=== PATIENT | male | born 1970 | race Caucasian/White ===

== ENCOUNTER → 2018-07-07 18:41 | Emergency (ER) | payer SELFPAY ==
--- NOTE | 2018-07-07 20:02 | ED ---
Abdominal Pain/Male - HPI Summary HPI Summary: A 48 y/o male presents to [facility] with a chief complaint of left sided abdominal pain for four days. He reports that his pain started out as left sided back pain , going to his ribs and now the left side of his abdomen. He describes his pain as a burning pain. At triage he rated his pain as a 7/10 in severity. He claims that this pain has been intermittent. He denies any N/V/D. He claims that ever since he had back surgery he felt constipated. He claims that his last BM was bloody four days ago. He denies any dysuria, hematuria, or pain in his testicles. He claims that he has lost his appetite, not eating yet today. He denies any abdominal SHx and denies any hernias. He reports a Hx of cysts and MRSA. He claims that he is a non-smoker but reports occasional EtOH use. 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 - History of Current Complaint Chief Complaint: Vicenta Stated Complaint: I HAD A PAIN IN MY BACK AND MY RIBS PER PT Time Seen by Provider: 07/07/18 19:52 Hx Obtained From: Patient Onset/Duration: Sudden Onset, Lasting Days, Still Present Timing: Intermittent, Lasting Seconds Severity Initially: Severe Severity Currently: Severe Pain Intensity: 7 Pain Scale Used: 0-10 Numeric Location: Discrete At: LUQ, Discrete At: LLQ Radiates: Yes Radiates to: Back, Other - ribs left sided Character: Burning Aggravating Factor(s): Nothing Alleviating Factor(s): Nothing Associated Signs And Symptoms: Positive: Back Pain, Constipation, Blood in Stool , Decreased Appetite. Negative: Fever, Urinary Symptoms, Nausea, Vomiting, Diarrhea - Allergies/Home Medications Allergies/Adverse Reactions: Allergies Allergy/AdvReac Type Severity Reaction Status Date / Time No Known Allergies Allergy Verified 07/07/18 18:47 Home Medications: Home Medications Naproxen Sodium [Aleve] 220 - 440 mg PO BID 07/07/18 [History Confirmed 07/07/18 ] PMH/Surg Hx/FS Hx/Imm Hx Endocrine/Hematology History: Denies: Hx Diabetes, Hx Thyroid Disease Cardiovascular History: Denies: Hx Hypertension, Hx Pacemaker/ICD Respiratory History: Denies: Hx Asthma, Hx Chronic Obstructive Pulmonary Disease (COPD) GI History: Reports: Hx Irritable Bowel - 15 YRS AGO- STRESS RELATED Denies: Hx Ulcer History: Denies: Hx Renal Disease Sensory History: Denies: Hx Contacts or Glasses, Hx Hearing Aid Opthamlomology History: Denies: Hx Contacts or Glasses Psychiatric History: Denies: Hx Panic Disorder - Surgical History Surgery Procedure, Year, and Place: Facial surgery w/screws and plates 20 years ago [facility] Hx Anesthesia Reactions: No Infectious Disease History: Yes Infectious Disease History: Reports: 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, left arm Denies: Hx Clostridium Difficile, Hx Hepatitis, Hx Human Immunodeficiency Virus (HIV), Hx Shingles, Hx Tuberculosis, Hx Known/Suspected VRE, Hx Known/ Suspected VRSA, History Other Infectious Disease, Traveled Outside the [place] in Last 30 Days - Family History Known Family History: Positive: Other - positive: shingles - mother - Social History Alcohol Use: None Alcohol Amount: Stopped drinking 2 years ago Substance Use Type: Reports: None Smoking Status (MU): Never Smoked Tobacco Have You Smoked in the Last Year: No Review of Systems Negative: Fever Positive: Abdominal Pain, Other - Positive: constipation. Negative: Vomiting, Diarrhea, Nausea Positive: Myalgia - back and rib pain All Other Systems Reviewed And Are Negative: Yes Physical Exam - Summary Physical Exam Summary: Appearance: Well-appearing, Well-nourished, lying in bed comfortable Skin: Warm, dry, area of vesiculation in left lower back consistent with shingles Eyes: sclera anicteric, no conjunctival pallor ENT: mucous membranes moist Neck: deferred Respiratory: No signs of respiratory distress Cardiovascular: Appears well perfused, pulses are nml Abdomen: deferred Musculoskeletal: Moving all 4 extremities without obvious discomfort Neurological: Awake and alert, mentation is normal, speech is fluent and appropriate Psychiatric: affect is normal, does not appear anxious or depressed Triage Information Reviewed: Yes Vital Signs On Initial Exam: Initial Vitals Temp Pulse Resp BP Pulse Ox 98.1 F 84 16 157/103 97 07/07/18 18:43 07/07/18 18:43 07/07/18 18:43 07/07/18 18:43 07/07/18 18:43 Vital Signs Reviewed: Yes Diagnostics - Vital Signs Vital Signs Temp Pulse Resp BP Pulse Ox 07/07/18 18:43 98.1 F 84 16 157/103 97 - Laboratory Lab Statement: Any lab studies that have been ordered have been reviewed, and results considered in the medical decision making process. Abdominal Pain Male Course/Dx - Course Course Of Treatment: A 48 y/o male presents to [facility] with a chief complaint of left sided abdominal pain for four days. The physical exam revealed an area of vesiculation in left lower back consistent with shingles. The patient will be discharged with prescriptions for Famvir, Neurontin and Vicodin. The patient is agreeable with this plan. - Diagnoses Provider Diagnoses: Shingles outbreak Discharge - Sign-Out/Discharge Documenting (check all that apply): Patient Departure - DC Patient Received Moderate/Deep Sedation with Procedure: No - Discharge Plan Condition: Good Disposition: HOME Prescriptions: Famciclovir(NF) [Famvir(NF)] 500 mg PO TID #21 tab Gabapentin CAP(*) [Neurontin 100 mg CAP(*)] 100 mg PO TID #30 cap Hydrocodone/Acetaminophen [Vicodin 5-300 mg Tablet] 1 each PO Q4HR PRN #20 tablet MDD 6 tabs PRN Reason: Pain Patient Education Materials: Shingles (ED) Referrals: [facility] [Outside] - Billing Disposition and Condition Condition: GOOD Disposition: Home - Attestation Statements Document Initiated by Scribe: Yes Documenting Scribe: Jony Pascal Provider For Whom Carol is Documenting (Include Credential): Karlos Cortes MD Scribe Attestation: Jony Taylor, scribed for Karlos Cortes MD on 07/08/18 at 0216. Scribe Documentation Reviewed: Yes Provider Attestation: The documentation as recorded by the Jony fisher accurately reflects the service I personally performed and the decisions made by Karlos andrews MD Status of Scribe Document: Viewed
[2018-07-07 20:37] VITALS: BP 152/89
== END | disposition home or self-care (01) ==
LOC: ED 18:41
DX: B02.9 Zoster without complications (principal); K58.9 Irritable bowel syndrome, unspecified
CPT/HCPCS: 99282